=== PATIENT | male | born 1995 | race Hispanic/Latino ===

== ENCOUNTER 2024-08-29 09:25 | Outpatient (CLI) | payer OTHER | END 2024-08-29 09:26 | disposition home or self-care (01) | LOC: ULT 09:25 | PROVIDERS: ATTEND Internal Medicine Gastroenterology | DX: K74.60 Unspecified cirrhosis of liver (principal); I85.10 Secondary esophageal varices without bleeding; R16.1 Splenomegaly, not elsewhere classified | CPT/HCPCS: 76705 ==